=== PATIENT | female | born 1955 | race Caucasian/White ===

== ENCOUNTER 2017-01-23 19:34 | Emergency (ER) | payer BC ==
[2017-01-23 19:46] VITALS: BP 151/74
--- NOTE | 2017-01-23 19:55 | UC ---
Lower Extremity/Ankle HPI - HPI Summary HPI Summary: left foot pain for 3 months-pain is worse in the morning-usual gets better when she gets new shoes but this time it is not better-works standing on her feet all day long - History of Current Complaint Chief Complaint: UCLowerExtremity Stated Complaint: HEEL PAIN Time Seen by Provider: 01/23/17 19:49 Hx Obtained From: Patient ?: No Onset/Duration: Gradual Onset, Lasting Weeks, Still Present Severity Initially: Moderate Severity Currently: Moderate Pain Intensity: 6 Pain Scale Used: 0-10 Numeric Aggravating Factor(s): Standing Alleviating Factor(s): Nothing Able to Bear Weight: Yes - Allergies/Home Medications Allergies/Adverse Reactions: Allergies Allergy/AdvReac Type Severity Reaction Status Date / Time No Known Allergies Allergy Verified 01/23/17 19:46 PMH/Surg Hx/FS Hx/Imm Hx Previously Healthy: Yes - Surgical History Surgical History: None - Family History Known Family History: Positive: None Family History: no cardiovascular issues in family lineage - Social History Occupation: Employed Full-time Lives: With Family Alcohol Use: None Substance Use Type: None Smoking Status (MU): Never Smoked Tobacco Review of Systems Constitutional: Negative Skin: Negative Eyes: Negative ENT: Negative Respiratory: Negative Cardiovascular: Negative Gastrointestinal: Negative Genitourinary: Negative Motor: Negative Neurovascular: Negative Musculoskeletal: Negative - of left foot, Arthralgia Neurological: Negative Psychological: Negative All Other Systems Reviewed And Are Negative: Yes Physical Exam Triage Information Reviewed: Yes Appearance: Well-Appearing, No Pain Distress, Well-Nourished Vital Signs: Initial Vital Signs Temp 98.4 F 01/23/17 19:40 Pulse 72 01/23/17 19:40 Resp 18 01/23/17 19:40 BP 151/74 01/23/17 19:40 Pulse Ox 100 01/23/17 19:40 Vital Signs Reviewed: Yes Eye Exam: Normal Eyes: Positive: Conjunctiva Clear ENT Exam: Normal ENT: Positive: Normal ENT inspection, Hearing grossly normal, Pharynx normal, TMs normal. Negative: Nasal congestion, Nasal drainage, Trismus, Muffled/ hoarse voice Dental Exam: Normal Neck exam: Normal Neck: Positive: Supple, Nontender, No Lymphadenopathy Respiratory Exam: Normal Respiratory: Positive: Chest non-tender, Lungs clear, Normal breath sounds, No respiratory distress, No accessory muscle use Cardiovascular Exam: Normal Cardiovascular: Positive: RRR, No Murmur, Pulses Normal, Brisk Capillary Refill Musculoskeletal Exam: Normal Musculoskeletal: Positive: Strength Intact, ROM Intact, No Edema Neurological Exam: Normal Neurological: Positive: Alert, Muscle Tone Normal Psychological Exam: Normal Skin Exam: Normal Diagnostics - Radiology No standard instances Xray Interpretation: Positive (See Comments) - Arthritis, Heel Spurs Radiology Interpretation Completed By: Radiologist Lower Extremity Course/Dx - Course Course Of Treatment: Plantar exercises, splint, orthodic for shoe. follow with podiatry, High Blood pressure with out dx of Hypertension Follow with pcp - Differential Dx/Diagnosis Differential Diagnosis/HQI/PQRI: Contusion, Fracture (Closed), Sprain, Strain Provider Diagnoses: Left Plantar Fascitis Discharge - Discharge Plan Condition: Stable Disposition: HOME Patient Education Materials: Ibuprofen (By mouth), Plantar Fasciitis Exercises (GEN), Plantar Fasciitis (ED), DASH Eating Plan (ED), Hypertension (ED) Referrals: Abdulaziz Chatman DPM [Doctor of Podiatric Medicine] - 1 Week Ronny Garrido MD [Primary Care Provider] - 2 Weeks Christopher Romano DPM [Doctor of Podiatric Medicine] - 1 Week
--- NOTE | 2017-01-23 20:20 | RAD ---
INDICATION: Left heel pain COMPARISON: None TECHNIQUE: AP, lateral, and oblique views were obtained. FINDINGS: There are no acute bony findings. There is minor first MTP joint osteoarthritis. There are Achilles and plantar calcaneal spurs. No additional significant findings. IMPRESSION: MINOR FIRST MTP JOINT OSTEOARTHRITIS. HEEL SPURS.
== END 2017-01-23 20:40 | disposition home or self-care (01) ==
LOC: UCEAST 19:34
DX: M72.2 Plantar fascial fibromatosis (principal)
CPT/HCPCS: 99211; G0463

== ENCOUNTER 2018-08-11 17:23 | Emergency (ER) | payer BC ==
[2018-08-11 17:33] VITALS: BP 155/86
--- NOTE | 2018-08-11 18:31 | UC ---
Abdominal Pain Female HPI - HPI Summary HPI Summary: 63-year-old woman comes to clinic today with a chief complaint of abdominal discomfort and saldaña urine. A week ago patient noticed some mid upper abdominal discomfort comfort that's pretty much persistent and low acuity. Rates the pain from a 1-3 out of 10. I made the pain worse or better. Decreased appetite since the discomfort has started. No change in bowel movements. Around that time she noticed her urine became a more saldaña color. No prior abdominal surgeries does not take any medications. No increased urinary frequency or burning with urination or urgency. 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: 2 Allergies/Adverse Reactions: Allergies Allergy/AdvReac Type Severity Reaction Status Date / Time No Known Allergies Allergy Verified 08/11/18 17:34 PMH/Surg Hx/FS Hx/Imm Hx Previously Healthy: Yes - Surgical History Surgical History: Yes Surgery Procedure, Year, and Place: T&A, D&C - Family History Known Family History: Positive: None Family History: no cardiovascular issues in family lineage - Social History Alcohol Use: None Substance Use Type: None Smoking Status (MU): Never Smoked Tobacco Review of Systems All Other Systems Reviewed And Are Negative: Yes Constitutional: Positive: Negative Skin: Positive: Negative Eyes: Positive: Negative ENT: Positive: Negative Respiratory: Positive: Negative Cardiovascular: Positive: Negative Gastrointestinal: Positive: Abdominal Pain. Negative: Vomiting, Diarrhea Genitourinary: Positive: Other - SEE HPI. Negative: Dysuria, Frequency, Urgency Motor: Positive: Negative Neurovascular: Positive: Negative Musculoskeletal: Positive: Negative Neurological: Positive: Negative Psychological: Positive: Negative Is Patient Immunocompromised?: No Physical Exam Triage Information Reviewed: Yes Appearance: Well-Appearing, No Pain Distress, Well-Nourished Vital Signs: Initial Vital Signs Temp 98.4 F 08/11/18 17:28 Pulse 77 08/11/18 17:28 Resp 16 08/11/18 17:28 BP 155/86 08/11/18 17:28 Pulse Ox 100 08/11/18 17:28 Vital Signs Reviewed: Yes Eye Exam: Normal Eyes: Positive: Conjunctiva Clear Neck exam: Normal Neck: Positive: Supple Respiratory: Positive: Lungs clear, Normal breath sounds, No respiratory distress Cardiovascular Exam: Normal Cardiovascular: Positive: RRR Abdomen Description: Positive: Soft, Other: - MILD TENDERNESS TO PALPATION IN THE UPPER ABD. Negative: CVA Tenderness (R), CVA Tenderness (L), Guarding Musculoskeletal Exam: Normal Musculoskeletal: Positive: Strength Intact, ROM Intact Neurological Exam: Normal Neurological: Positive: Alert, Muscle Tone Normal Psychological Exam: Normal Psychological: Positive: Age Appropriate Behavior Skin Exam: Normal Abd Pain Female Course/Dx - Course Course Of Treatment: Order Information: CT ABD/PEL W/O. Accession Number: [id number]. CPT: 35676. EXAM: CT Abdomen and Pelvis Without Contrast. EXAM DATE/TIME: 08/11/2018 6:16 PM. CLINICAL HISTORY: 63 years old, female; Pain; Abdominal pain; Epigastric; Additional info: Mid. abd pain x 1 week with dark urine. TECHNIQUE: Axial computed tomography images of the abdomen and pelvis without contrast. All CT scans at this facility use at least one of these dose optimization. techniques: automated exposure control; mA and/or kV adjustment per patient. size (includes targeted exams where dose is matched to clinical indication); or. iterative reconstruction. Coronal and sagittal reformatted images were created and reviewed. COMPARISON: No relevant prior studies available. FINDINGS: Lower thorax: No acute findings. ABDOMEN: Liver: Normal. No mass. Gallbladder and bile ducts: There is cholelithiasis without pericholecystic. inflammatory change. There is intrahepatic and extrahepatic biliary dilation. with the common bile duct measuring up to 13 mm diameter no visible. choledocholithiasis or obstructing mass. Pancreas: Normal. No ductal dilation. Spleen: Normal. No splenomegaly. Adrenals: Normal. No mass. Kidneys and ureters: Normal. No hydronephrosis. Stomach and bowel: Normal. No obstruction. No mucosal thickening. Appendix: The appendix is unremarkable and seen best on axial image 51 of. series 2. PELVIS: Bladder: Unremarkable as visualized. Reproductive: There are postoperative changes of bilateral tubal ligation. surgery. ABDOMEN and PELVIS: Intraperitoneal space: Normal. No free air. No significant fluid collection. Bones/joints: There are degenerative changes of the spine. Soft tissues: Unremarkable. Vasculature: There are calcified phleboliths in the pelvis. Lymph nodes: Normal. No enlarged lymph nodes. IMPRESSION: 1. There is cholelithiasis without pericholecystic inflammatory change. 2. There is intrahepatic and extrahepatic biliary dilation with the common bile. duct measuring up to 13 mm diameter but no visible choledocholithiasis or. obstructing mass. To contact [facility] with a general question: Operations Center - [phone]. For direct physician to physician contact: Physician Hotline - [phone]. [facility] ([facility] Facility ID #[id number]). . <Electronically signed by Carlos Higginbotham MD in OV> 08/11/18 4305. I discussed the CT and urine results with the patient. Patient was mildly tender in the epigastrium. The plan is to treat her with omeprazole and encouraged plenty of water drinking. Getting a CRP CBC CMP and lipase here. Urine is going to culture. Patient does not have any UTI symptoms will not treat at this time. Patient will be following up with her primary care doctor. We discussed if anything gets worse or persists she should get reevaluated in the emergency department. - Differential Dx/Diagnosis Provider Diagnosis: Abdominal pain Discharge - Sign-Out/Discharge Documenting (check all that apply): Patient Departure All imaging exams completed and their final reports reviewed: Yes - Discharge Plan Condition: Stable Disposition: HOME Prescriptions: Omeprazole CAP* [Prilosec CAP* 20 MG] 20 mg PO BID #30 cap. Patient Education Materials: Acute Abdominal Pain (ED) Referrals: Ronny Garrido MD [Primary Care Provider] - [facility] [Outside] Additional Instructions: FOLLOW UP WITH YOUR DOCTOR. GO TO THE EMERGENCY DEPARTMENT FOR ANY WORSENING OF YOUR CONDITION; PAIN, FEVER , YO FEEL ILL OR QUESTIONS OR CONCERNS. - Billing Disposition and Condition Condition: STABLE Disposition: Home
[2018-08-12 10:35] LABS: Hematocrit 41 % (35-47); Hemoglobin 13.7 g/dl (12.0-16.0); Mean Corpuscular HGB Conc 33 g/dl (31-36); Mean Corpuscular Hemoglobin 31 pg (27-31); Mean Corpuscular Volume 94 fL (80-97); Red Cell Distribution Width 16 % (10.5-15); White Blood Count 14.6 10^3/ul (3.5-10.8)
[2018-08-12 10:52] LABS: Albumin 4.6 g/dL (3.2-5.2); BUN/Creatinine Ratio 15.7 (8-20); Calcium 9.8 mg/dL (8.6-10.3); EGFR Non-African American 63.9 (>60); Globulin 2.3 g/dL (2-4); Potassium 4.1 mmol/L (3.5-5.0); Total Bilirubin 5.3 mg/dL (0.2-1.0); Total Protein 6.9 g/dL (6.4-8.9)
[2018-08-12 11:05] LABS: ABS Basophils 0.1 10^3/ul (0-0.2); ABS Eosinophils 0.1 10^3/ul (0-0.6); ABS Lymphocytes 8.7 10^3/ul (1.0-4.8); ABS Monocytes 0.6 10^3/ul (0-0.8); ABS Neutrophils 5.1 10^3/ul (1.5-7.7); ABS Nucleated RBC 0 10^3/ul; Eosinophil % 0.7 %; Lymphocyte % 59.5 %; Nucleated Red Blood Cells % 0.2
[2018-08-12 11:06] LABS: Platelet Count Platelets clumped. 10^3/ul (150-450)
--- NOTE | 2018-08-12 15:24 | UC ---
- Progress Note Progress Note: elevated WBCs elevated LFTs including ALK PHOS needs to go to the ER Course/Dx - Diagnoses Provider Diagnoses: Abdominal pain Discharge - Sign-Out/Discharge Documenting (check all that apply): Post-Discharge Follow Up All imaging exams completed and their final reports reviewed: Yes - Discharge Plan Condition: Stable Disposition: HOME Prescriptions: Omeprazole CAP* [Prilosec CAP* 20 MG] 20 mg PO BID #30 cap. Patient Education Materials: Acute Abdominal Pain (ED) Referrals: [facility] [Outside] Ronny Garrido MD [Primary Care Provider] - Additional Instructions: FOLLOW UP WITH YOUR DOCTOR. GO TO THE EMERGENCY DEPARTMENT FOR ANY WORSENING OF YOUR CONDITION; PAIN, FEVER , YO FEEL ILL OR QUESTIONS OR CONCERNS. - Billing Disposition and Condition Condition: STABLE Disposition: Home
--- NOTE | 2018-08-13 15:43 | UC ---
- Progress Note Progress Note: Pathology COMMENT comes back from blood work drawn here in clinic on July as leukocytosis with absolute lymphocytosis with morphologic features suspicious for chronic lymphocytic leukemia. In reviewing her records she did go the emergency department and she was admitted overnight. I did not see that anybody else's address this particular comment. Nursing to call patient inform her of the leukocytosis and the need for follow- up with her primary care doctor for this condition take get this rechecked. Course/Dx - Diagnoses Provider Diagnoses: Abdominal pain Discharge - Sign-Out/Discharge Documenting (check all that apply): Patient Departure All imaging exams completed and their final reports reviewed: Yes - Discharge Plan Condition: Stable Disposition: HOME Prescriptions: Omeprazole CAP* [Prilosec CAP* 20 MG] 20 mg PO BID #30 cap. Patient Education Materials: Acute Abdominal Pain (ED) Referrals: [facility] [Outside] Ronny Garrido MD [Primary Care Provider] - Additional Instructions: FOLLOW UP WITH YOUR DOCTOR. GO TO THE EMERGENCY DEPARTMENT FOR ANY WORSENING OF YOUR CONDITION; PAIN, FEVER , YO FEEL ILL OR QUESTIONS OR CONCERNS. - Billing Disposition and Condition Condition: STABLE Disposition: Home
== END 2018-08-11 19:20 | disposition home or self-care (01) ==
LOC: UCEAST 17:23
DX: R10.9 Unspecified abdominal pain (principal)
CPT/HCPCS: 36415; 74176; 80053; 81003; 83690; 85025; 85060; 86140; 87086; 99211; G0463

== ENCOUNTER 2018-08-12 17:11 | Observation (INO) | payer BC ==
--- NOTE | 2018-08-12 18:17 | ED ---
GI/ HPI - HPI Summary HPI Summary: Patient is a 63 y/o F presenting to ED due to abnormal bloodwork related to her gallbladder. She was seen at [facility] [place] yesterday for abdominal discomfort and saldaña urine. Patient received CT abd/pel which showed gallstones. She was discharged to home and claims she was instructed to follow up with either PCP or at the ED. Patient came to ED as she did not want to wait for appointment with PCP. She was treated with omeprazole at . Abdominal discomfort is reported to have been at upper abdomen, constant, and rated 1-2/10. Patient states that she has not experienced any abdominal pain today. No diaphoresis reported, no Hx of gallbladder issues. Fever, chills, erythema of eyes, sore throat, chest pain, SOB, cough, N/V, dysuria, hematuria, myalgia, edema, rash and dizziness are not reported. On triage, pain is rated 2/10, nothing is noted to aggravate/alleviate Sx. Home medications and allergies are reviewed. 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 Negative: Dizziness, Nausea, Vomiting, Fever, Hematuria, Dysuria, Chills, Cough - Fever, chills, erythema of eyes, sore throat, chest pain, SOB, cough, N/V, dysuria, hematuria, myalgia, edema, rash and dizziness are not reported. She endorses saldaña urine and abdominal pain, Chest Pain Aggravating Factor(s): Nothing Alleviating Factor(s): Nothing - Allergy/Home Medications Allergies/Adverse Reactions: Allergies Allergy/AdvReac Type Severity Reaction Status Date / Time No Known Allergies Allergy Verified 08/11/18 17:34 PMH/Surg Hx/FS Hx/Imm Hx Endocrine/Hematology History: Denies: Hx Diabetes, Hx Thyroid Disease Cardiovascular History: Denies: Hx Hypertension Respiratory History: Denies: Hx Asthma, Hx Chronic Obstructive Pulmonary Disease (COPD) GI History: Denies: Hx Ulcer - Surgical History Surgery Procedure, Year, and Place: T&A, D&C Infectious Disease History: No Infectious Disease History: Denies: Hx Clostridium Difficile, Hx Hepatitis, Hx Human Immunodeficiency Virus (HIV), Hx of Known/Suspected MRSA, Hx Shingles, Hx Tuberculosis, Hx Known/ Suspected VRE, Hx Known/Suspected VRSA, History Other Infectious Disease, Traveled Outside the [place] in Last 30 Days - Family History Known Family History: Negative: Cardiac Disease Family History: no cardiovascular issues in family lineage - Social History Alcohol Use: None Substance Use Type: Reports: None Smoking Status (MU): Never Smoked Tobacco Review of Systems Negative: Fever, Chills Negative: Erythema Negative: Sore Throat Negative: Chest Pain Negative: Shortness Of Breath, Cough Positive: Abdominal Pain. Negative: Vomiting, Nausea Genitourinary: Other - POSITIVE - "SALDAÑA URINE" Negative: dysuria, hematuria Negative: Myalgia, Edema Negative: Rash Neurological: Other - NEGATIVE - DIZZINESS All Other Systems Reviewed And Are Negative: Yes Physical Exam - Summary Physical Exam Summary: Constitutional: Well-developed, Well-nourished, Alert. (-) Distressed Skin: Warm, Dry HENT: Normocephalic; Atraumatic Eyes: Conjunctiva normal Neck: Musculoskeletal ROM normal neck. (-) JVD, (-) Stridor, (-) Tracheal deviation Cardio: Rhythm regular, rate normal, Heart sounds normal; Intact distal pulses; The pedal pulses are 2+ and symmetric. Radial pulses are 2+ and symmetric. (-) Murmur Pulmonary/Chest wall: Effort normal. (-) Respiratory distress, (-) Wheezes, (-) Rales Abd: Soft, (-) epigastric tenderness, (-) Distension, (-) Guarding, (-) Rebound Musculoskeletal: (-) Edema Lymph: (-) Cervical adenopathy Neuro: Alert, Oriented x3 Psych: Mood and affect Normal Triage Information Reviewed: Yes Vital Signs On Initial Exam: Initial Vitals Temp Pulse Resp BP Pulse Ox 97.8 F 85 18 175/86 100 08/12/18 17:16 08/12/18 17:16 08/12/18 17:16 08/12/18 17:16 08/12/18 17:16 Vital Signs Reviewed: Yes Diagnostics - Vital Signs Vital Signs Temp Pulse Resp BP Pulse Ox 08/12/18 17:16 97.8 F 85 18 175/86 100 - Laboratory Result Diagrams: 08/13/18 06:43 08/13/18 06:43 Lab Statement: Any lab studies that have been ordered have been reviewed, and results considered in the medical decision making process. - Ultrasound No standard instances Ultrasound Interpretation Completed By: Radiologist Summary of Ultrasound Findings: GALLBLADDER US IMPRESSION: 1. Cholelithiasis without other sonographic findings of cholecystitis. 2. Biliary dilatation without identified etiology. THIS REPORT WAS REVIEWED BY ED PHYSICIAN. Re-Evaluation - Re-Evaluation First Eval Re-Evaluation Time: 20:46 Comment: Admission was discussed with patient, she is agreeable. GIGU Course/Dx - Course Course Of Treatment: Patient is a 63 y/o F presenting to ED due to abnormal bloodwork related to her gallbladder. She was seen at [facility] [place] yesterday for abdominal discomfort and saldaña urine. Patient received CT abd/pel which showed gallstones. She was discharged to home and claims she was instructed to follow up with either PCP or at the ED. Patient came to ED as she did not want to wait for appointment with PCP. She was treated with omeprazole at . Abdominal discomfort is reported to have been at upper abdomen, constant, and rated 1-2/ 10. Patient states that she has not experienced any abdominal pain today. No diaphoresis reported, no Hx of gallbladder issues. Physical exam was unremarkable. Labs showed WBC 15.4, glucose 106, total bilirubin 4.9, AST 414, ALT 471, Alk Phos 435, lipase 55. UA showed 2+ blood, no glucose, no bacteria. GALLBLADDER US IMPRESSION: 1. Cholelithiasis without other sonographic findings of cholecystitis. 2. Biliary dilatation without identified etiology. Patient's case was discussed with Dr. Richards at 2041, Dr. Richards recommends admission, is agreeable with IV antibiotics and MRCP in the morning. Admission was discussed with patient, she is agreeable. During ED course, patient was started on Flagyl 500 mg IVPB and Cipro 400 Mg IVpremix. Patient's case was discussed with Dr. Rodney, Dr. Rodney accepts for admission. - Diagnoses Provider Diagnoses: Obstructive jaundice - Physician Notifications Discussed Care Of Patient With: Tho Richards Time Discussed With Above Provider: 20:42 Instructed by Provider To: Other - Patient's case was discussed with Dr. Richards at 2041, Dr. Richards recommends admission, is agreeable with IV antibiotics and MRCP in the morning. 2052 - Patient's case was discussed with Dr. Rodney, Dr. Rodney accepts for admission. Discharge - Sign-Out/Discharge Documenting (check all that apply): Patient Departure - ADMIT - Discharge Plan Condition: Good Disposition: ADMITTED TO [facility] - Billing Disposition and Condition Condition: GOOD Disposition: Admitted to [facility] - Attestation Statements Document Initiated by Scribe: Yes Documenting Scribe: GEORGE BOOTH Provider For Whom Bette is Documenting (Include Credential): PANTERA IRIZARRY MD Scribe Attestation: IGEORGE , scribed for PANTERA IRIZARRY MD on 08/14/18 at 2046. Scribe Documentation Reviewed: Yes Provider Attestation: The documentation as recorded by the GEORGE kramer accurately reflects the service I personally performed and the decisions made by me, PANTERA IRIZARRY MD Status of Scribe Document: Viewed
[2018-08-12 18:28] LABS: Urine Appearance Clear; Urine Bacteria Absent (Absent); Urine Bilirubin Negative (Negative); Urine Blood 2+ (Negative); Urine Color Yellow; Urine Glucose Negative (Negative); Urine Ketones Negative (Negative); Urine Nitrite Negative (Negative); Urine Protein Negative (Negative); Urine Red Blood Cell Trace(0-2/hpf) (Absent); Urine Specific Gravity 1.002 (1.010-1.030); Urine Urobilinogen Negative (Negative); Urine White Blood Cell Trace(0-5/hpf) (Absent)
[2018-08-12 18:33] LABS: Hematocrit 40 % (35-47); Hemoglobin 13.4 g/dl (12.0-16.0); Mean Corpuscular HGB Conc 33 g/dl (31-36); Mean Corpuscular Hemoglobin 31 pg (27-31); Mean Corpuscular Volume 93 fL (80-97); Mean Platelet Volume 9.4 fL (7.4-10.4); Platelet Count 248 10^3/ul (150-450); Red Blood Count 4.31 10^6/ul (4.00-5.40); Red Cell Distribution Width 15 % (10.5-15); White Blood Count 15.4 10^3/ul (3.5-10.8)
[2018-08-12 18:49] LABS: Albumin 4.3 g/dL (3.2-5.2); Albumin/Globulin Ratio 1.7 (1-3); BUN/Creatinine Ratio 13.5 (8-20); Calcium 9.3 mg/dL (8.6-10.3); EGFR Non-African American 63.9 (>60); Globulin 2.5 g/dL (2-4); Potassium 3.8 mmol/L (3.5-5.0); Total Bilirubin 4.9 mg/dL (0.2-1.0); Total Protein 6.8 g/dL (6.4-8.9)
[2018-08-12] MEDS ORDERED: metroNIDAZOLE IV 500 MG/100ML* 500 MG/100 ML BAG IVPB ONE (20:44)
[2018-08-12] MEDS ORDERED: Ciprofloxacin 400MG IVPREMIX(* 400 MG/200 ML BAG IVPB ONE (20:44)
[2018-08-12] MEDS ORDERED: Morphine VIAL* 4 MG/ML VIAL (1 ml vial) IV PRN (21:34)
[2018-08-12] MEDS ORDERED: NS 0.9% 1000 ML* 1,000 ML IV SCH (21:45)
[2018-08-12 22:04] LABS: C Reactive Protein 4.82 mg/L (<8.01)
[2018-08-12 22:29] LABS: Erythrocyte Sed Rate 21 mm/Hr (0-30)
[2018-08-12] MEDS: amLODIPine TAB* 5 MG PO SCH (22:47)
[2018-08-13] MEDS: Heparin VIAL(*) 5000 UNITS/ML VIAL (FIVE THOUSAND) SUBCUT SCH ×3 (01:08→14:01)
--- NOTE | 2018-08-13 01:45 | HP ---
CC: Dr. Richards * HISTORY AND PHYSICAL: DATE OF ADMISSION: 08/12/18 PRIMARY CARE PROVIDER: None. ATTENDING PHYSICIAN WHILE IN THE HOSPITAL: Amy Rodney MD * (report dictated by Stacia Peralta NP). CHIEF COMPLAINT: 1. Abdominal pain. 2. Discolored urine. 3. Abnormal labs. HISTORY OF PRESENT ILLNESS: Mrs. Blackwood is a 63-year-old female patient who for the last couple of weeks has had a notable decrease in appetite. She has felt nauseous intermittently. She has had abdominal pain that she describes mostly on the right lower and left lower quadrants, mostly in the lower abdomen that has been intermittent and not associated with food. It comes and goes. She noticed that if she bent forward, the pain was worse. She denied having any fevers or chills, but she did note that she just was not having the same interest in food and it had been persistently going on for the last couple of weeks, so she went to urgent care yesterday. She does not have a primary that she sees routinely and her family was concerned because of this and it was found on imaging that there was concern for increased biliary duct dilatation, and her LFTs and bilirubin were noted to be elevated as well and she had a white count of 14,000. She was called back today and asked to go to the ER to be further evaluated for possible cholangitis. The patient says that today the pain has actually been better, but she was concerned because of the phone call she received. She denied having any vomiting. No fevers or chills were reported. No chest pain or shortness of breath. She came into the ED today. It was noted that her LFTs were slightly improved. Her white count was still 15 ,000 and she did have an ultrasound that did show cholelithiasis and also biliary dilatation without identified etiology. There was concern due to these findings and we were asked to evaluate for admission. PAST MEDICAL HISTORY: Denied. PAST SURGICAL HISTORY: 1. She has had tonsillectomy. 2. D and C. 3. Tubal ligation. MEDICATIONS: Home meds include omeprazole 20 mg daily, which was just prescribed yesterday. ALLERGIES TO MEDICATIONS: Include no known drug allergies. FAMILY HISTORY: She says her mother is still alive and healthy to her knowledge. The father had a history of dementia. SOCIAL HISTORY: She does not smoke. She does not drink. She is close to longterm. Surrogate decision maker is her daughter. REVIEW OF SYSTEMS: There is no documented fever. She denied having any significant weight change. There is no double vision. She denies having any ear discharge. There is no rhinorrhea. There is no sore throat. There is no thyroid enlargement. She is denying having any chest pain. There is no orthopnea. There is no nocturnal dyspnea. She denies having any abdominal pain currently, she did have some per my HPI. There was some nausea, but no vomiting, no dysuria, no frequency. There was no seizure. No loss of consciousness, no pruritus, and no skin ulcerations. Review of 14 systems completed, all others are negative. PHYSICAL EXAMINATION GENERAL: At this time, Mrs. Blackwood is a 63-year-old female patient. She is sitting on the ED stretcher. She does not appear to be in any acute distress. She appears to be well nourished and well developed. VITAL SIGNS: Blood pressure 179/97, pulse was 88, respirations 18, O2 sat 99%, temperature 97.8. HEENT: Head: Atraumatic, normocephalic. Eyes: EOMs are intact. Sclerae anicteric and not pale. Throat: Oral mucosa appears to be moist. No oropharyngeal erythema. NECK: Supple. LUNGS: Clear to auscultation bilaterally. There were no wheezes, rales, or rhonchi. HEART: Sounds S1 and S2. She had a regular rate and rhythm. No murmurs, rubs , or gallops. ABDOMEN: Soft. It was flat. It was nontender. Bowel sounds were present. EXTREMITIES: Pulses were 2+ throughout. She is moving all 4 extremities with 5 /5 strength. NEUROLOGIC: The patient is awake. She is alert. She is oriented x3. Tongue is midline. She had no gross focal deficits. SKIN: Intact. DIAGNOSTIC STUDIES/LAB DATA: Her labs today revealed a WBC of 15.4, RBC of 4.31, hemoglobin of 13.4, hematocrit of 40, and platelet count of 248. Sodium was 139, potassium was 3.8, chloride of 105, bicarb of 26, BUN 12, creatinine of 0.89, glucose of 106. Her total bili was 4.9, AST 414, ALT 471, alk phos 434. CRP yesterday was 4. Lipase was 55. Urine showed a low specific gravity , 2+ blood. She had a gallbladder ultrasound obtained today, which showed, impression: Cholelithiasis without sonographic findings of cholecystitis, biliary distention without identified etiology. She had an abdominal and pelvis CT obtained yesterday, which showed there is cholelithiasis without pericholecystic fluid, pericholecystic inflammatory change. There was intra and extrahepatic biliary dilation with the common bile duct measuring up to 13 mm. No visible choledocholithiasis or obstructing mass. Old medical records were reviewed. ASSESSMENT AND PLAN: Mrs. Blackwood is a 63-year-old female patient coming in to the ED today with complaints of intermittent abdominal pain for the last 2 weeks and now found to have elevated LFTs and possible biliary obstruction. The patient will be admitted under observation status for: 1. Presumed biliary colic, possible cholangitis. Again at this point, she is pain free. She has had no fevers. She does have a white count which is concerning. She will be put on antibiotics empirically. I have touched base with GI who will evaluate the patient. I will panculture the patient. I will get an ESR and a CRP. The patient will undergo MRCP tomorrow morning. She is on a clear liquid diet. I have ordered pain medications for the patient. I will repeat her LFTs in the morning. Being that she is pain free now, she may have passed a stone. We will continue to monitor, get MRCP. If this is negative, we may need to consider getting the surgical input as well, possible HIDA scan for further evaluation and she may need eventually a cholecystectomy, but again at this point, we need to make sure that the duct is clear, so MRCP is ordered. 2. Hypertensive urgency. Again, she is not having any signs of end-organ damage, but she does have a significant elevated blood pressure. I have started her on amlodipine. I will get a chest x-ray. In addition to this, I will also get an EKG. 3. DVT prophylaxis: She will be placed on heparin subcu. 4. Code status: Full code. 5. Fluids, electrolytes, and nutrition: She can have a clear liquid diet and n.p.o. after midnight. TIME SPENT: Time spent on this admission was 60 minutes, greater than half of the time was spent [id number] with the patient obtaining my history and physical, the other half of the time was spent going over the plan of care with the patient and implementing plan of care. I discussed the plan of care with my attending, Dr. Rodney, and she is in agreement. STACIA PERALTA, SOFTWARE SUPPORT REPRESENTATIVE [id number]/[facility] [place]: [id number] TANA
[2018-08-13] MEDS: metroNIDAZOLE IV 500 MG/100ML* 500 MG/100 ML BAG IVPB SCH ×2 (05:05→13:06)
[2018-08-13 07:12] LABS: Hematocrit 38 % (35-47); Hemoglobin 12.8 g/dl (12.0-16.0); Mean Corpuscular HGB Conc 34 g/dl (31-36); Mean Corpuscular Hemoglobin 31 pg (27-31); Mean Corpuscular Volume 93 fL (80-97); Mean Platelet Volume 9.7 fL (7.4-10.4); Platelet Count 242 10^3/ul (150-450); Red Blood Count 4.07 10^6/ul (4.00-5.40); Red Cell Distribution Width 16 % (10.5-15); White Blood Count 13.4 10^3/ul (3.5-10.8)
[2018-08-13 07:15] LABS: INR 0.83 (0.77-1.02)
[2018-08-13 07:32] LABS: Albumin 3.8 g/dL (3.2-5.2); Albumin/Globulin Ratio 1.7 (1-3); BUN/Creatinine Ratio 9.6 (8-20); Calcium 9.2 mg/dL (8.6-10.3); EGFR Non-African American 69.2 (>60); Globulin 2.3 g/dL (2-4); Indirect Bilirubin 1.8 mg/dL (0.3-1.0); Potassium 3.6 mmol/L (3.5-5.0); Total Bilirubin 4.9 mg/dL (0.2-1.0); Total Protein 6.1 g/dL (6.4-8.9)
[2018-08-13 07:58] LABS: ABS Basophils 0 10^3/ul (0-0.2); ABS Eosinophils 0.1 10^3/ul (0-0.6); ABS Lymphocytes 8.6 10^3/ul (1.0-4.8); ABS Monocytes 0.6 10^3/ul (0-0.8); ABS Neutrophils 4.1 10^3/ul (1.5-7.7); ABS Nucleated RBC 0 10^3/ul; Eosinophil % 0.5 %; Lymphocyte % 64.1 %; Nucleated Red Blood Cells % 0.2
[2018-08-13] MEDS ORDERED: Ciprofloxacin 400MG IVPREMIX(* 400 MG/200 ML BAG IVPB SCH (09:00)
[2018-08-13] MEDS: amLODIPine TAB* 5 MG PO SCH (09:16)
[2018-08-13 15:21] VITALS: BP 133/76
--- NOTE | 2018-08-13 15:22 | DS ---
CC: Dr. Amy Rodney; Dr. Tom Kirby; Dr. Richards; Dr. Ortiz; Dr. Ronny Garrido; Dr. Muir * DISCHARGE/TRANSFER SUMMARY: DATE OF ADMISSION: DATE OF DISCHARGE: 08/13/18 DISCHARGE DIAGNOSES: As follows: 1. Biliary obstruction likely secondary to choledocholithiasis. 2. Hypertensive urgency, possibly driven by #1, improved. DISCHARGE MEDICATIONS/TRANSFER MEDICATIONS SUGGESTED: Are as follows: 1. Amlodipine 5 mg p.o. daily. 2. Morphine 2 mg IV q.4 p.r.n. 3. Ciprofloxacin 400 mg IV q.12. 4. Metronidazole 500 mg IV q.8. Given the patient is being transferred, I have not sent the IV antibiotics to her pharmacy. HISTORY OF PRESENT ILLNESS/HOSPITAL COURSE: The patient is a 63-year-old lady with no previously documented past medical history who was admitted on 08/12/18 with a chief complaint of abdominal pain and discolored urine. She mentions that in the past couple of weeks, she has had a notable decrease in her appetite with some nausea, abdominal pain that is mostly in the bilateral lower quadrants, not associated with her food intake. She denied having any fevers or chills and when she was admitted, she had an MRCP done, which showed dilated intrahepatic ducts and extrahepatic ducts, which extends to the ampulla and possibility of an ampullary lesion or obstruction is being considered. During admission, she also had a gallbladder ultrasound, which suggests cholelithiasis without any sonographic findings for cholecystitis with evidence of biliary dilatation shown in MRCP. Given above, I have discussed the results with Dr. Muir for an ERCP. Unfortunately, he mentioned that Dr. Ortiz will be out of town later today and would not be able to perform an ERCP. Given need for advanced endoscopy procedure, I have contacted [facility], the nearest hospital that the patient prefers to go to and has been accepted under the service of Dr. Esposito for subsequent GI consultation and hence we will defer. During her hospital stay, she has been hemodynamically stable and does not appear septic with stable vital signs. She had been advised to follow up and recall her PCP within 3 days post discharge from [facility] and she has been informed that she is being transferred to [facility] for an ERCP. If her symptoms resume or develop new ones or feel unwell for any reason, she was advised to call her PCP and if her PCP cannot entertain her due to scheduling issues alone, she was advised to call [facility] if the issue is considered nonemergent. She was advised to call my office regarding any questions, concerns, or further clarifications regarding her discharge plans and her prescriptions and to take her medications as prescribed by her doctors at [facility]. REVIEW OF SYSTEMS: She currently denied any headaches, dizziness, fevers, chills, nausea, vomiting, chest pain, shortness of breath, increased cough or sputum production, abdominal pain, diarrhea, constipation, pain and/or increased frequency on urination, myalgias, arthralgias, throat pain, or new skin lesions. The rest of the 14-point review of systems is otherwise unremarkable. PHYSICAL EXAMINATION: Reveals the most recent vital signs of records with blood pressure of 153/73, 98% saturation on room air, 94 beats per minute heart rate, 98 degrees Fahrenheit, 18 per minute respiratory rate. General Appearance : The patient is awake, alert, and oriented x3, not in acute distress. HEENT: Normocephalic, atraumatic. PERRLA. Extraocular muscles intact. Negative for icterus. Moist oral mucosa. Negative throat erythema. Neck is soft, supple with no cervical lymphadenopathy. No JVD. Heart: S1, S2 within normal limits. Regular rate and rhythm. No murmurs, rubs, and gallops. Chest: Clear to auscultation bilaterally. Good air entry. No wheezes, rales, or rhonchi. Abdomen is soft, nondistended, nontender. Normoactive bowel sounds x4 quadrants. Extremities: No cyanosis, clubbing, or edema. Psychiatric: No active psychosis, depression, suicidal or homicidal ideations. Skin is warm to touch. TIME SPENT: The total time spent evaluating the patient, reviewing pertinent data, and appropriate documentation is 65 minutes. [id number]/[facility] #: [id number] MTDD
--- NOTE | 2018-08-13 19:19 | CONS ---
CC: Dr. Amy Rodney * CONSULTATION REPORT: DATE OF CONSULT: 08/13/18 REASON FOR CONSULT: Abnormal LFTs, abdominal pain. HISTORY OF PRESENT ILLNESS: This is a pleasant 63-year-old female who over the last few weeks noted a decrease in appetite with occasional nausea. There was no clear emesis. She had additional abdominal pain that she actually states was periumbilical in nature at times in the right lower quadrant that came and went, had no prandial association. Denied any fever, chills, or rigors. She went to Urgent Care on 08/11/18 and was found to have increased LFTs, bilirubin , and leukocytosis. She was called on 08/12/18 to report to the emergency room for evaluation. In the emergency room, she was found to have a dilated common bile duct. Overall, she feels quite well at this point. No abdominal pain. She is moving her bowels well. She had no black or blood in the stool. No dysphagia. No odynophagia. No weight loss or gain. No emesis, chest pain, or shortness of breath. Remainder of the 14-point review of systems was negative. PAST MEDICAL HISTORY: She states she had a colonoscopy some years ago, but cannot recall with who, whether it was done in [place]. I see no records in our current EMR. PAST SURGICAL HISTORY: Tonsillectomy, D and C, tubal ligation. HOME MEDICATIONS: She was given omeprazole at the Urgent Care, otherwise none. ALLERGIES: No known drug allergies. FAMILY HISTORY: No family history of GI, cancer malignancy, or liver disease. SOCIAL HISTORY: Nonsmoker. No alcohol use. REVIEW OF SYSTEMS: Remainder of 14-point review of systems is grossly negative. PHYSICAL EXAM: Vital Signs: Blood pressure 133/76, pulse is 87, respiratory rate is 17, temperature is 97.8. In general, alert and oriented x3. HEENT: Atraumatic, normocephalic. Pupils equal, round, reactive to light. Sclerae are icteric. Conjunctivae are pink. Cardiovascular: Regular rate and rhythm. S1, S2. Respiratory: Clear to auscultation bilaterally. Abdomen: Soft, nontender, nondistended. Bowel sounds positive. Extremities: No clubbing, no cyanosis, no edema. Skin is without rash or lesions. Neurologic exam is nonfocal. DIAGNOSTIC STUDIES/LAB DATA: White blood cell count is 13.4, down from 15.4. INR is 0.83. Her total bilirubin is 4.9, direct is 3.10, indirect 1.8. AST is 397, ALT is 455, alkaline phosphatase 405. Lipase 55. She had a gallbladder ultrasound on 08/12/18 that showed a CBD dilation of 14.2 mm. No distinct stone, but also had findings of cholelithiasis. No distinct choledocholithiasis was identified. She had an MRCP on 08/13/18, which revealed dilated intrahepatic and extrahepatic ducts that extend to the ampulla. The possibility of an ampullary lesion or obstruction should be considered. IMPRESSION: 1. Obstructive jaundice. 2. Dilated intra and extrahepatic ducts. 3. Possibly choledocholithiasis. RECOMMENDATIONS: The patient would benefit from ERCP. Her LFTs remained relatively unchanged over the past 24 to 48 hours. She is afebrile. She is currently on antibiotics. There is no evidence of hypotension or vascular instability. I discussed the case with Dr. Garcia, the patient's hospitalist , and recommended transfer to a facility that has ERCP capability at this point. The primary team will arrange this. In addition, the recommendation would be to have likely same stay cholecystectomy pending results if this is choledocholithiasis. [id number]/[facility] #: [id number] TANA
== END 2018-08-13 16:45 | disposition short-term general hospital (02) ==
LOC: ED 17:11 → MED 21:30
PROVIDERS: ADMIT Pediatrics; ATTEND Student in an Organized Health Care Education/Training Program
DX: K80.51 Calculus of bile duct without cholangitis or cholecystitis with obstruction (principal); I16.0 Hypertensive urgency
CPT/HCPCS: 36415; 71045; 74181; 76376; 76705; 80048; 80053; 80076; 81003; 81015; 83690; 85025; 85027; 85060; 85610; 85652; 86140; 87040; 93005; 96365; 96366; 96375; 99285; A9270-GY; G0378; J0744; J1644; J3490